=== PATIENT | male | born 1970 | race African-American/Black ===

== ENCOUNTER 2017-10-06 20:54 | Emergency (ER) | payer BC, OTHER ==
[~2017-10-06] VITALS: Ht 177.8 cm; Wt 81.7 kg
--- NOTE | ~2017-10-06 | EKG ---
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
[~2017-10-06 20:54] MED LIST: ALBUTEROL2.5 MG/31 INH; BAYER CHEWABLE81 MG PO; CLONIDINE0.1 PO; HYDROCHLOROTHIA25 M2 PO; NORVASC5 MG PO; PREDNISONE 20 M20 MG PO; PREDNISONE50 MG PO; PROCTOSOL-HC28.35 GM RC; VENTOLIN HFA 1818 GM INH; ZPAK PO
[2017-10-06 21:36] LABS: ABSOLUTE NEUTROPHILS 4.4 thou/uL (1.4-8.2); BASOPHILS 0.9 % (0.0-2.0); EOSINOPHILS 9.7 % (0.0-3.0); HEMATOCRIT 45.2 % (42.0-52.0); HEMOGLOBIN 15.4 gm/dL (14.0-18.0); LYMPHOCYTES 31.1 % (24.0-44.0); MCH 29.5 pg (26.0-34.0); MCHC 34.2 g/dL (28.0-37.0); MCV 86.4 fL (80.0-100.0); MONOCYTES 6.5 % (1.0-8.0); PLATELET COUNT 191 thou/uL (150-400); POLYS 51.8 % (36.0-66.0); RBC 5.24 mil/uL (4.50-6.00); RDW 14.1 % (10.5-14.5); WBC 8.5 thou/uL (4.0-11.0)
[2017-10-06 21:43] LABS: ANION GAP 6 mmol/L (7-16); BUN 29 mg/dL (7-18); CALCIUM 9.1 mg/dL (8.5-10.1); CHLORIDE 105 mmol/L (98-107); CO2 29 mmol/L (21-32); CREATININE 2.3 mg/dL (0.7-1.3); GLUCOSE 116 mg/dL (74-106); POTASSIUM 3.4 mmol/L (3.5-5.1); SODIUM 140 mmol/L (136-145)
[2017-10-06 21:51] LABS: ALBUMIN 3.6 g/dL (3.4-5.0); SGOT 20 U/L (15-37); SGPT 30 U/L (30-65); TOTAL BILIRUBIN 0.6 mg/dL (<0.1-1.0); TROPONIN-I < 0.04 ng/mL (<0.06)
[2017-10-06 23:41] VITALS: BP 117/81
== END 2017-10-06 23:41 | disposition home or self-care (01) ==
LOC: ER 20:54
PROVIDERS: Physician Assistant
DX: R42 Dizziness and giddiness (principal); E86.0 Dehydration; N28.9 Disorder of kidney and ureter, unspecified; I10 Essential (primary) hypertension; J45.909 Unspecified asthma, uncomplicated

== ENCOUNTER 2018-05-13 19:03 | Emergency (ER) | payer BC, OTHER ==
[~2018-05-13] VITALS: Ht 177.8 cm; Wt 81.7 kg
[2018-05-13] MEDS ORDERED: NORVASC5 MG PO (20:14)
[2018-05-13] MEDS ORDERED: HYDROCHLOROTHIA25 M2 PO (20:14)
[2018-05-13] MEDS ORDERED: CLONIDINE0.1 PO (20:14)
[2018-05-13 20:20] VITALS: BP 134/88
== END 2018-05-13 20:15 | disposition home or self-care (01) ==
LOC: ER 19:03
DX: L98.499 Non-pressure chronic ulcer of skin of other sites with unspecified severity (principal); I10 Essential (primary) hypertension; J45.909 Unspecified asthma, uncomplicated; Z76.0 Encounter for issue of repeat prescription

== ENCOUNTER 2018-07-05 22:25 | Emergency (ER) | payer BC, OTHER ==
[~2018-07-05] VITALS: Ht 177.8 cm; Wt 81.7 kg
[2018-07-06 00:12] LABS: ABSOLUTE NEUTROPHILS 5.7 thou/uL (1.4-8.2); BASOPHILS 0.4 % (0.0-2.0); EOSINOPHILS 3.3 % (0.0-3.0); HEMOGLOBIN 15.6 gm/dL (14.0-18.0); LYMPHOCYTES 19.6 % (24.0-44.0); MCH 29.3 pg (26.0-34.0); MCV 86.2 fL (80.0-100.0); MONOCYTES 5.9 % (1.0-8.0); PLATELET COUNT 169 thou/uL (150-400); POLYS 70.8 % (36.0-66.0); RBC 5.34 mil/uL (4.50-6.00); RDW 13.9 % (10.5-14.5); WBC 8.1 thou/uL (4.0-11.0)
[2018-07-06 00:21] LABS: CALCIUM 9.2 mg/dL (8.5-10.1); CREATININE 1.5 mg/dL (0.7-1.3); POTASSIUM 3.8 mmol/L (3.5-5.1)
[2018-07-06 00:27] LABS: ALBUMIN 3.9 g/dL (3.4-5.0); TOTAL BILIRUBIN 0.6 mg/dL (<0.1-1.0); TOTAL PROTEIN 7.4 g/dL (6.4-8.2)
[2018-07-06] MEDS ORDERED: AMLODIPINE BESYL5 M1 PO (01:01)
[2018-07-06] MEDS ORDERED: SENNA-DOCUSATE1 EAC1 PO (02:38)
[2018-07-06] MEDS ORDERED: PROTONIX40 MG PO (02:38)
[2018-07-06 05:11] VITALS: BP 158/88
== END 2018-07-06 05:12 | disposition home or self-care (01) ==
LOC: ER 22:25
PROVIDERS: Emergency Medicine
DX: R10.12 Left upper quadrant pain (principal); I10 Essential (primary) hypertension; J45.909 Unspecified asthma, uncomplicated